=== PATIENT | female | born 1985 | race Caucasian/White ===

== ENCOUNTER → 2023-07-04 09:14 | Outpatient (CLI) | payer OTHER, SELFPAY ==
--- NOTE | 2023-07-04 09:17 | DI.MG.S_ITS ---
BILATERAL DIGITAL SCREENING MAMMOGRAM 3D/2D WITH CAD: 07/04/2023 CLINICAL: Baseline exam. Routine screening. Family history of breast cancer. No prior exams were available for comparison. Both breasts are heterogeneously dense, which may obscure small masses (category c / 51-75% glandular tissue). Current study was also evaluated with a Computer Aided Detection (CAD) system. There are segmental calcifications in the right breast at 11 o'clock posterior depth. No other significant masses, calcifications, or other findings are seen in either breast. IMPRESSION: INCOMPLETE: NEEDS ADDITIONAL IMAGING EVALUATION The segmental calcifications in the right breast are indeterminate. Additional views with possible ultrasound are recommended. Based on Tyrer-Cuzick model (a risk assessment model), the patient's lifetime risk is 26.2% and her 10 year risk is 2.9%. If a patient has an elevated risk, a more comprehensive evaluation should be considered and/or a referral to a genetic counselor. The [employer], [employer], and NCCN Guidelines advise the consideration of Breast MRI as an adjunct to screening mammography in patients whose Lifetime risk to develop breast cancer is 20% or higher. This exam was interpreted at Station ID: [id number]. NOTE: For mammograms, a report in lay terms will be sent to the patient. Approximately 15% of breast malignancies will not be visualized mammographically. In the management of a palpable breast mass, a negative mammogram must not discourage biopsy of a clinically suspicious lesion. Electronically Signed By: Kerrie esposito/:07/04/2023 12:42:02 letter sent: Additional Imaging Needed ACR BI-RADS Category 0: Incomplete [id number]
== END ==
LOC: MAMMO 09:16
PROVIDERS: PCP Registered Nurse; Referring Provider Registered Nurse; Visit Provider Registered Nurse
DX: Z12.31 Encounter for screening mammogram for malignant neoplasm of breast (principal); Z80.3 Family history of malignant neoplasm of breast; R92.333 Mammographic heterogeneous density, bilateral breasts
CPT/HCPCS: 77063; 77067

== ENCOUNTER 2023-07-13 14:32 | Day surgery (SDC) | payer OTHER, SELFPAY ==
--- NOTE | 2023-07-13 | PATH_ITS ---
[facility] Accession Number: [id number] No. of containers..02 Tissue . 01 Material submitted: . PART A: colon - DESCENDING COLON POLYP PART B: rectum - RECTAL POLYP X2 . 01 Diagnosis: Part A: DESCENDING COLON POLYP: Hyperplastic polyp. . Part B: RECTAL POLYP X2: Hyperplastic polyps. [facility] 07/20/2023 1117 Local . 01 Electronically signed: . Que Ignacio MD, Pathologist NPI- [id number] . 01 Gross description: . A. Received in formalin with two identifiers and descending colon polyp BX, is a gallegos soft tissue fragment, 0.3 cm in greatest dimension. Submitted in A1. . B. Received in formalin with two identifiers and rectum x2, are two gallegos soft tissue fragments, 0.4 to 0.5 cm in greatest dimension. Submitted in B1. ([id number]) /MRV 07/20/2023 1117 Local . 01 Pathologist provided ICD-10: K63.5 . 01 CPT . 736808, [id number] Specimen Comment: A courtesy copy of this report has been sent to [phone] Performed at: 01 [facility] [address] [place] [address] [address], [place], [place] [id number] MD Que Ignacio MD Phone: [phone]
[2023-07-13 14:46] VITALS: BP 124/88; PULSE 62; RESP 18; TEMP 37.3; O2SAT 98
[2023-07-13] MEDS: LACTATED RINGERS 1,000 ML 42 ML IV (14:46)
--- NOTE | 2023-07-13 14:52 | PM.HP.1 ---
History of Present Illness History of Present Illness Date Patient Seen: 07/13/23 Time Patient Seen: 14:52 Chief complaint: SDC Narrative: 37-year-old woman here for 1st time screening colonoscopy. Strong family history of colon cancer in second-degree relatives. No abdominal concerns today PFSH Surgical History Status post dilation and curettage Family History Grandfather Age: 96 Bowel cancer Grandmother Age: 96 Depression Mother Age: 64 Breast cancer Social History Smoking Status: Never smoker alcohol intake: never Meds Home Medications and Allergies Allergies Allergy/AdvReac Type Severity Reaction Status Date / Time No Known Drug Allergies Allergy Verified 07/13/23 14:44 Exam Vital Signs (past 8 hours): - 07/13/23 14:46 Temperature 99.2 F Pulse Rate 62 Respiratory Rate 18 Blood Pressure 124/88 Pulse Oximetry 98 Oxygen Delivery Method Room Air Oxygen Delivery Method Room Air Narrative Exam Narrative: General adult woman alert oriented no acute distress Chest nonlabored respiration Extremities warm well perfused Assessment & Plan Assessment & Plan narrative: The patient requires colorectal screening and colonoscopy is recommended. Technical details were discussed. Risks, benefits, alternatives explained. Risks including but not limited to myocardial infarction, aspiration, bleeding, pain, missed lesion, incomplete examination, need for further radiographic studies, intestinal injury, and need for major abdominal surgery were discussed. All questions were answered to their satisfaction, and they are in agreement with this plan.
--- NOTE | 2023-07-13 14:53 | P.OP.COLON_ITS ---
Operative Date/Time/Diagnoses Date of procedure: 07/13/23 Time of procedure: 14:53 Pre-op diagnosis: Family history of colon cancer Procedure & Clinicians Study performed: Colonoscopy Same procedure as scheduled: Yes Indications: Colorectal screening Family history of colon cancer Surgeon: Fredis Cedillo Procedure Notes Procedure in detail: The history and physical was performed/updated and the patient is ASA class is 1. The procedure was discussed in detail with the patient. Potential risks complications including infection, bleeding, missed diagnosis, perforation, need for surgery, and were explained. Their questions were answered and informed consent was obtained. Patient was brought to the procedure room and placed standard monitoring equipment. The patient's vital signs were monitored continuously throughout the entire procedure. Prior to starting time-out was performed. The patient was placed in the left lateral recumbent position. Procedural sedation was administered by anesthesia. Examination began with a thorough inspection of the perianal area there was no evidence of fissures, fistulae, external hemorrhoids or cutaneous malignancy. The colonoscopy scope was then placed into the anal canal and was advanced to the cecum, which was identified by the ileocecal valve, the appendiceal orifice and the confluence of the taenia. The scope was then slowly withdrawn examining colon thoroughly in all directions, irrigating it of any residual stool. The scope was retroflexed within the rectum The patient tolerated the procedure well. They will be discharged once criteria are met. The prep was of good/excellent quality. The withdrawl time was 10 minutes. FINDINGS * Descending colon polyp 3 mm removed with biopsy forceps * Rectal polyps x2 each approximately 3 mm removed with biopsy forceps Specimen(s): other (Descending colon polyp, rectal polyp x2) Impression: Colonic polyps x3 Post-procedure Plan for aftercare: Follow-up is dependent on pathology findings Disposition: same day surgery
--- NOTE | 2023-07-13 14:56 | P.OP.COLON_ITS ---
Operative Date/Time/Diagnoses Date of procedure: 07/13/23
--- NOTE | 2023-07-13 14:56 | PM.OP.COLON ---
Operative Date/Time/Diagnoses Date of procedure: 07/13/23
[2023-07-13 15:26] VITALS: BP 141/72; PULSE 78; RESP 14; TEMP 36.3; O2SAT 98
[2023-07-13 15:30] VITALS: BP 100/67; PULSE 61; RESP 14; O2SAT 98
[2023-07-13 15:35] VITALS: BP 99/60; PULSE 55; RESP 14; O2SAT 97
== END 2023-07-13 16:11 | disposition home or self-care (01) ==
PROVIDERS: PCP Registered Nurse; Referring Provider Surgery; Visit Provider Surgery
PROC: 0DJD8ZZ Inspection of Lower Intestinal Tract, Via Natural or Artificial Opening Endoscopic (ICD-10-PCS; CPT 45378; principal; 2023-07-13 15:30)
DX: Z12.11 Encounter for screening for malignant neoplasm of colon (principal); K63.5 Polyp of colon; K62.1 Rectal polyp
CPT/HCPCS: 45380; J2704

== ENCOUNTER → 2023-07-31 09:37 | Outpatient (CLI) | payer OTHER, SELFPAY ==
--- NOTE | 2023-07-31 09:38 | DI.MG.S_ITS ---
UNILATERAL RIGHT DIGITAL DIAGNOSTIC MAMMOGRAM 3D/2D WITH ADDITIONAL VIEWS: 07/31/2023 CLINICAL: Additional evaluation requested from prior study. Comparison is made to exam dated: 07/04/2023 mammogram - [facility]. The right breast is heterogeneously dense, which may obscure small masses (category c / 51-75% glandular tissue). There are loosely grouped punctate round calcifications in the right breast at 11 o'clock posterior depth. No other significant masses or calcifications are seen in the breast. IMPRESSION: PROBABLY BENIGN The grouped punctate round calcifications in the right breast are probably benign. A follow-up right mammogram in 6 months is recommended to demonstrate stability. Based on Tyrer-Cuzick model (a risk assessment model), the patient's lifetime risk is 26.2% and her 10 year risk is 2.9%. If a patient has an elevated risk, a more comprehensive evaluation should be considered and/or a referral to a genetic counselor. The [employer], [employer], and NCCN Guidelines advise the consideration of Breast MRI as an adjunct to screening mammography in patients whose Lifetime risk to develop breast cancer is 20% or higher. This exam was interpreted at Station ID: [id number]. NOTE: For mammograms, a report in lay terms will be sent to the patient. Approximately 15% of breast malignancies will not be visualized mammographically. In the management of a palpable breast mass, a negative mammogram must not discourage biopsy of a clinically suspicious lesion. Electronically Signed By: Rico Alfonso M.D. ar/:07/31/2023 10:06:29 letter sent: Followup Recommended ACR BI-RADS Category 3: Probably benign [id number]
== END ==
PROVIDERS: PCP Registered Nurse; Referring Provider Registered Nurse; Visit Provider Registered Nurse
DX: R92.8 Other abnormal and inconclusive findings on diagnostic imaging of breast (principal); R92.1 Mammographic calcification found on diagnostic imaging of breast; R92.331 Mammographic heterogeneous density, right breast
CPT/HCPCS: 77065; G0279

== ENCOUNTER → 2024-04-02 09:40 | Outpatient (CLI) | payer OTHER, SELFPAY ==
--- NOTE | 2024-04-02 09:41 | DI.MG.S_ITS ---
BILATERAL DIGITAL DIAGNOSTIC MAMMOGRAM 3D/2D: 04/02/2024 CLINICAL: Short term follow up of the right breast, due for bilateral imaging. Comparison is made to exams dated: 07/04/2023 mammogram and 07/31/2023 mammogram - [facility]. The breasts are heterogeneously dense, which may obscure small masses (category c / 51-75% glandular tissue). There are grouped punctate round calcifications in the right breast at 11 o'clock posterior depth. These are not significantly changed. No other significant masses, calcifications, or other findings are seen in either breast. IMPRESSION: PROBABLY BENIGN The grouped punctate round calcifications in the right breast are probably benign. A follow-up bilateral mammogram in 12 months is recommended to document usp stability. Findings and recommendations were conveyed to the patient during today's evaluation. Based on Tyrer-Cuzick model (a risk assessment model), the patient's lifetime risk is 26.1% and her 10 year risk is 3.1%. If a patient has an elevated risk, a more comprehensive evaluation should be considered and/or a referral to a genetic counselor. The [place] [employer], [employer], and NCCN Guidelines advise the consideration of Breast MRI as an adjunct to screening mammography in patients whose Lifetime risk to develop breast cancer is 20% or higher. This exam was interpreted at Station ID: [id number]. NOTE: For mammograms, a report in lay terms will be sent to the patient. Approximately 15% of breast malignancies will not be visualized mammographically. In the management of a palpable breast mass, a negative mammogram must not discourage biopsy of a clinically suspicious lesion. Electronically Signed By: Bob Ortega M.D. aty/:04/02/2024 10:20:22 letter sent: Followup Recommended ACR BI-RADS Category 3: Probably Benign
== END ==
PROVIDERS: PCP Registered Nurse; Referring Provider Registered Nurse; Visit Provider Registered Nurse
DX: R92.1 Mammographic calcification found on diagnostic imaging of breast (principal); R92.8 Other abnormal and inconclusive findings on diagnostic imaging of breast; N64.4 Mastodynia; R92.333 Mammographic heterogeneous density, bilateral breasts
CPT/HCPCS: 77066; G0279

== ENCOUNTER → 2024-12-03 08:52 | Outpatient (CLI) | payer OTHER, SELFPAY ==
--- NOTE | 2024-12-03 08:53 | DI.MG.S_ITS ---
MM diagnostic mammo BI: 12/03/2024. BI-RADS: 3 CLINICAL: 38-year old female for bilateral diagnostic mammogram that is a follow-up to diagnostic, bilateral, digital, tomosynthesis on 04/02/2024. Tyrer-Cuzick lifetime risk of 18.5%. Current reported family history of breast cancer: mother. PRIOR EXAMS 04/02/2024, 07/31/2023, 07/04/2023. MAMMOGRAPHY TECHNIQUE: 2D and 3D (tomosynthesis) digital mammographic views obtained, with additional images as needed for full coverage. Current study was also evaluated with a Computer Aided Detection (CAD) system. DENSITY C. The breasts are heterogeneously dense, which may obscure small masses. MAMMOGRAPHY FINDINGS Right: Upper Outer at 11:00, Posterior depth: Correlating with prior imaging concern there are punctate calcifications that are unchanged in size and appearance. These calcifications are in a loosely grouped/regional distribution. Left: No suspicious mass, asymmetry, microcalcification, or other abnormality seen. IMPRESSION: Right (Calcification): Upper Outer at 11:00, Posterior depth * Probably Benign. Left * No evidence of malignancy. RECOMMENDATIONS Right: Upper Outer at 11:00, Posterior depth * Followup with diagnostic mammography in one year to demonstrate 2 year stability. Left * Annual screening mammography in one year. COMMENTS: Findings and recommendations were conveyed to the patient during today's evaluation. OVERALL ASSESSMENT CATEGORY BI-RADS-3: Probably Benign. ELECTRONICALLY SIGNED: Marquita Smith M.D. on 12/03/2024 at 09:55:21 AM PT Interpreting Station ID: [id number]
== END ==
LOC: MAMMO 08:52
PROVIDERS: PCP Registered Nurse; Referring Provider Registered Nurse; Visit Provider Registered Nurse
DX: R92.8 Other abnormal and inconclusive findings on diagnostic imaging of breast (principal); R92.1 Mammographic calcification found on diagnostic imaging of breast; R92.333 Mammographic heterogeneous density, bilateral breasts; Z80.3 Family history of malignant neoplasm of breast; Z91.89 Other specified personal risk factors, not elsewhere classified
CPT/HCPCS: 77066; G0279